=== PATIENT | female | born 1955 | race Caucasian/White ===

== ENCOUNTER 2018-09-19 09:04 | Inpatient (IN) | payer MEDICAID ==
[2018-09-19] VITALS (45 sets, daily range): BP systolic 114–151; BP diastolic 44–115
[~2018-09-19] VITALS: Ht 157.5 cm; Wt 72.6 kg
[~2018-09-19 09:04] MED LIST: ALBU6.7H INH; ALPR1TAB2 PO; ATOR20TA65 PO; BACITRACIN 50,000 UNITS/VIAL ONE; ESTR0.5T PO; FENTANYL CITRATE/PF 50MCG/ML 5ML VIAL ONE; HYDROMORPHONE HCL/PF 2MG/ML (OR) ONE; LACTATED RINGERS 1,000 ML IV SCH; LEVO25TA7 PO; LIDOCAINE HCL/EPINEPHRINE 1%-EPI 1:100,000 20 ML VIAL ONE; MIDAZOLAM HCL 2 MG/2 ML VIAL ONE; NORMAL SALINE 0.9% 10 ML SYR ONE; PROG100C5 PO; PROPOFOL 200MG/20ML VIAL IV ONE; ROCURONIUM BROMIDE 10MG/ML VIAL 5ML IV ONE; THROMBIN (BOVINE) 5000 UNITS/VIAL TOP ONE
[2018-09-19] MEDS ORDERED: LACTATED RINGERS 1,000 ML IV SCH (09:45)
[2018-09-19] MEDS ORDERED: NICARDIPINE 100 MG in SODIUM CHLORIDE 0.9% 60 ML IV PRN (10:15)
[2018-09-19] MEDS ORDERED: ONDANSETRON HCL 4MG/2ML INJ IV PRN (10:15)
[2018-09-19] MEDS ORDERED: ESMOLOL HCL 10MG/ML 10ML VIAL IV ONE (10:46)
[2018-09-19] MEDS ORDERED: ROCURONIUM BROMIDE 10MG/ML VIAL 5ML IV ONE (10:49)
[2018-09-19] MEDS ORDERED: GLYCOPYRROLATE 0.2 MG/ML 2ML VIAL ONE (11:39)
[2018-09-19] MEDS ORDERED: LIDOCAINE HCL/PF 1% 10 MG/ML 5ML VIAL ONE (11:43)
[2018-09-19] MEDS ORDERED: KETOROLAC 30MG/ML VIAL ONE (11:45)
[2018-09-19] MEDS: DEXT 5%/LACTATED RINGERS 1,000 ML IV SCH ×2 (12:45→21:29)
[2018-09-19] MEDS: MORPHINE SULFATE 2 MG/ML CPJ (NOT FOR IM USE) IV PRN ×3 (12:47→23:22)
[2018-09-19] MEDS ORDERED: LIDOCAINE HCL 1% 20ML VIAL (Pyxis) INJ ONE (13:55)
[2018-09-19] MEDS: DEXAMETHASONE 4MG/ML 1ML VIAL IV SCH ×3 (15:40→23:10)
[2018-09-19] MEDS ORDERED: BISACODYL 5MG TABLET PO PRN (16:00)
[2018-09-19] MEDS ORDERED: IPRATROPIUM/ALBUTEROL 0.5-3(2.5)MG/3ML NEB HHN PRN (16:00)
[2018-09-19] MEDS: FAMOTIDINE 20MG/2ML VIAL IV SCH (18:30)
[2018-09-19 19:38] LABS: HEMATOCRIT. 43.7 % (36.0-48.0); HEMOGLOBIN. 14.8 g/dL (12.0-16.0); MEAN CORPUSCULAR HEMOGLOBIN 31.1 pg (28.0-32.0); MEAN CORPUSCULAR VOLUME 91.9 fL (81.0-99.0); MEAN PLATELET VOLUME 10.8 fl (7.4-10.4); PLATELET 219 x1000/uL (130-400); RED BLOOD CELL COUNT 4.75 mill/uL (4.2-5.4); RED CELL DISTRIBUTION WIDTH 13.9 % (11.6-14.6)
[2018-09-19 19:42] LABS: CHLORIDE 109 mEq/L (98-107)
[2018-09-19 20:05] LABS: PLATELET ESTIMATE NORMAL
[2018-09-19] MEDS: ATORVASTATIN CALCIUM 20MG TABLET PO SCH (21:29)
[2018-09-20] VITALS (60 sets, daily range): BP systolic 72–150; BP diastolic 31–78
[2018-09-20] MEDS: DEXT 5%/LACTATED RINGERS 1,000 ML IV SCH ×3 (04:01→20:44)
[2018-09-20 05:31] LABS: CHLORIDE 110 mEq/L (98-107)
[2018-09-20] MEDS: LEVOTHYROXINE SODIUM 25MCG TABLET PO SCH (05:33)
[2018-09-20] MEDS: DEXAMETHASONE 4MG/ML 1ML VIAL IV SCH ×2 (05:33→12:37)
[2018-09-20] MEDS: MORPHINE SULFATE 2 MG/ML CPJ (NOT FOR IM USE) IV PRN ×4 (05:33→16:55)
[2018-09-20 05:45] LABS: MEAN CORPUSCULAR HEMOGLOBIN 31.5 pg (28.0-32.0); MEAN PLATELET VOLUME 10.9 fl (7.4-10.4); PLATELET 214 x1000/uL (130-400); RED BLOOD CELL COUNT 4.46 mill/uL (4.2-5.4); RED CELL DISTRIBUTION WIDTH 13.6 % (11.6-14.6)
[2018-09-20 07:29] LABS: PLATELET ESTIMATE NORMAL
[2018-09-20] MEDS: FAMOTIDINE 20MG/2ML VIAL IV SCH (08:44)
[2018-09-20] MEDS: DOCUSATE SODIUM 250MG CAPSULE PO SCH (09:00)
[2018-09-20] MEDS: ALPRAZOLAM 0.5 MG TABLET PO PRN ×3 (10:20→23:10)
[2018-09-20] MEDS: TRAMADOL 50MG TABLET PO PRN ×2 (12:46→20:44)
[2018-09-20] MEDS: ATORVASTATIN CALCIUM 20MG TABLET PO SCH (20:43)
[2018-09-21] VITALS (33 sets, daily range): BP systolic 120–172; BP diastolic 49–95
[2018-09-21] MEDS: DEXT 5%/LACTATED RINGERS 1,000 ML IV SCH (04:58)
[2018-09-21 05:21] LABS: CHLORIDE 111 mEq/L (98-107)
[2018-09-21] MEDS: LEVOTHYROXINE SODIUM 25MCG TABLET PO SCH (06:26)
[2018-09-21] MEDS: FAMOTIDINE 20MG/2ML VIAL IV SCH (08:51)
[2018-09-21] MEDS: TRAMADOL 50MG TABLET PO PRN (08:52)
[2018-09-21 09:12] LABS: HEMATOCRIT. 39.5 % (36.0-48.0); HEMOGLOBIN. 13.2 g/dL (12.0-16.0); MEAN CORPUSCULAR HEMOGLOBIN 30.9 pg (28.0-32.0); MEAN CORPUSCULAR VOLUME 92.8 fL (81.0-99.0); MEAN PLATELET VOLUME 10.7 fl (7.4-10.4); PLATELET 211 x1000/uL (130-400); RED BLOOD CELL COUNT 4.25 mill/uL (4.2-5.4); RED CELL DISTRIBUTION WIDTH 14.2 % (11.6-14.6)
[2018-09-21 09:45] LABS: PLATELET ESTIMATE NORMAL
[2018-09-21] MEDS: DOCUSATE SODIUM 250MG CAPSULE PO SCH (09:52)
[2018-09-21] MEDS: ALPRAZOLAM 0.5 MG TABLET PO PRN (10:50)
== END 2018-09-21 19:08 | disposition home or self-care (01) | DRG 321 ==
LOC: EEVIPCON 09:04 → OR 09:04 → MICUSO 09:05
PROVIDERS: ADMIT Neurological Surgery; ATTEND Neurological Surgery
PROC: 0RG10A0 Fusion of Cervical Vertebral Joint with Interbody Fusion Device, Anterior Approach, Anterior Column, Open Approach (ICD-10-PCS; principal; 2018-09-19)
PROC: 0RT30ZZ Resection of Cervical Vertebral Disc, Open Approach (ICD-10-PCS; 2018-09-19)
DX: M47.12 Other spondylosis with myelopathy, cervical region (principal); G82.50 Quadriplegia, unspecified; G95.20 Unspecified cord compression; D17.9 Benign lipomatous neoplasm, unspecified; D64.9 Anemia, unspecified; E03.9 Hypothyroidism, unspecified; E78.5 Hyperlipidemia, unspecified; F32.9 Major depressive disorder, single episode, unspecified; D72.829 Elevated white blood cell count, unspecified; F43.10 Post-traumatic stress disorder, unspecified; H54.61 Unqualified visual loss, right eye, normal vision left eye; I10 Essential (primary) hypertension; J45.909 Unspecified asthma, uncomplicated; Z79.899 Other long term (current) drug therapy; R26.81 Unsteadiness on feet; Z91.030 Bee allergy status; Z91.041 Radiographic dye allergy status; Z88.8 Allergy status to other drugs, medicaments and biological substances
CPT/HCPCS: 36415; 36569; 71045; 72040; 76000; 76937; 80048; 86850; 86900; 88304; 88311; 97116; 97163; 97166; C1725; J1100; J1170; J1885; J2250; J2270; J2405; J2704; J3010; J3490; J7121; L0172

== ENCOUNTER 2018-12-23 16:24 | Emergency (ER) | payer MEDICAID ==
[~2018-12-23] VITALS: Ht 157.5 cm; Wt 64.0 kg
[~2018-12-23 16:24] MED LIST changes: -BACITRACIN 50,000 UNITS/VIAL ONE; -FENTANYL CITRATE/PF 50MCG/ML 5ML VIAL ONE; -HYDROMORPHONE HCL/PF 2MG/ML (OR) ONE; -LACTATED RINGERS 1,000 ML IV SCH; -LIDOCAINE HCL/EPINEPHRINE 1%-EPI 1:100,000 20 ML VIAL ONE; -MIDAZOLAM HCL 2 MG/2 ML VIAL ONE; -NORMAL SALINE 0.9% 10 ML SYR ONE; +PROG100C10 PO; -PROG100C5 PO; -PROPOFOL 200MG/20ML VIAL IV ONE; -ROCURONIUM BROMIDE 10MG/ML VIAL 5ML IV ONE; -THROMBIN (BOVINE) 5000 UNITS/VIAL TOP ONE
[2018-12-23] MEDS ORDERED: NITROGLYCERIN OINT 1GM/INCH UDPKT TD ONE (18:00)
[2018-12-23] MEDS ORDERED: ASPIRIN 81MG TABLET PO ONE (18:00)
[2018-12-23 19:16] LABS: BASOPHILS % 0.5 % (0.0-2.0); EOSINOPHILS % 1.3 % (0.0-5.0); HEMATOCRIT. 44.7 % (36.0-48.0); HEMOGLOBIN. 15.4 g/dL (12.0-16.0); LYMPHOCYTES % 28.3 % (20.0-50.0); MEAN CORPUSCULAR HEMOGLOBIN 31.6 pg (28.0-32.0); MEAN PLATELET VOLUME 9.7 fl (7.4-10.4); MONOCYTES % 5.1 % (2.0-8.0); NEUTROPHILS % 64.8 % (40.0-76.0); PLATELET 295 x1000/uL (130-400); RED BLOOD CELL COUNT 4.86 mill/uL (4.2-5.4); RED CELL DISTRIBUTION WIDTH 13.4 % (11.6-14.6)
[2018-12-23 19:22] LABS: D-DIMER 0.33 mg/L FEU (<0.50); PROTHROMBIN TIME 10.2 sec (9.6-11.0)
[2018-12-23 19:30] LABS: CHLORIDE 107 mEq/L (98-107)
[2018-12-23 20:06] VITALS: BP 139/65
== END 2018-12-23 20:08 | disposition left against medical advice (07) ==
LOC: ER 16:24 → EDBEDREQ 18:01 → ER 20:08 → CANBEDREQ 20:26
DX: R07.89 Other chest pain (principal); F41.1 Generalized anxiety disorder; G43.909 Migraine, unspecified, not intractable, without status migrainosus; F43.10 Post-traumatic stress disorder, unspecified; Z98.890 Other specified postprocedural states; Z79.899 Other long term (current) drug therapy; Z88.6 Allergy status to analgesic agent; Z88.1 Allergy status to other antibiotic agents; Z91.030 Bee allergy status; Z91.041 Radiographic dye allergy status; Z91.02 Food additives allergy status; Z88.5 Allergy status to narcotic agent; Z91.013 Allergy to seafood; Z88.8 Allergy status to other drugs, medicaments and biological substances; Z91.048 Other nonmedicinal substance allergy status
CPT/HCPCS: 36415; 71045; 83880; 84484; 85379; 99284